=== PATIENT | male | born 1965 | race Caucasian/White ===

== ENCOUNTER 2022-05-21 15:34 | Outpatient (NON) | payer OTHER, SELFPAY | END 2022-05-21 15:35 | disposition home or self-care (01) | LOC: ANHLAB 05-25 15:36 | PROVIDERS: PCP Internal Medicine; Visit Provider Nurse Practitioner | DX: B07.9 Viral wart, unspecified (principal); L57.0 Actinic keratosis; L91.8 Other hypertrophic disorders of the skin | CPT/HCPCS: 88305; 88342 ==